=== PATIENT | female | born 1960 | race Caucasian/White ===

== ENCOUNTER 2020-01-19 09:07 | Emergency (ER) | payer MEDICAID ==
[~2020-01-19] VITALS: Ht 152.4 cm; Wt 61.2 kg
[2020-01-19 09:24] VITALS: Ht 152.4 cm; Wt 61.2 kg
[2020-01-19 11:15] VITALS: BP 156/76
== END 2020-01-19 11:15 | disposition home or self-care (01) ==
LOC: ED 09:07
DX: J02.9 Acute pharyngitis, unspecified (principal); I10 Essential (primary) hypertension; E11.9 Type 2 diabetes mellitus without complications